=== PATIENT | male | born 1985 | race Caucasian/White ===

== ENCOUNTER 2017-02-01 21:26 | Emergency (ER) | payer MEDICAID ==
[~2017-02-01] VITALS: Ht 167.6 cm; Wt 69.5 kg
[2017-02-01 21:30] VITALS: Ht 167.6 cm; Wt 69.5 kg
[2017-02-01] MEDS ORDERED: KETOROLAC 30 MG INJ IV STA (23:30)
[2017-02-02] MEDS ORDERED: FENTAnyl 50 MCG/ML VIAL IV ONE (01:30)
--- NOTE | 2017-02-02 01:33 | RADRPT ---
PROCEDURE: CT scan facial bones CLINICAL INDICATION: Trauma, jaw dislocation, locked jaw. TECHNIQUE: A CT of the facial bones was performed without intravenous contrast. Coronal and sagitt al reformats were generated. CTDIvol: 29.58 mGy. DLP: 655.36 mGy-cm. One or more of the following dose reduction techniques were used: - Automated exposure control. - Adjustment of the mA and/or kV according to patient size. - Use of iterative reconstruction technique. COMPARISON: None available FINDINGS: The soft tissues of the face are unremarkable. There is anterior dislocation of both mandibular con dyles. No fractures identified.. The intraorbital structures are normal. The paranasal sinuses and nasal cavity are clear. There are small foci of air in the bilateral cavernous sinuses, probably a ir emboli related to an IV catheter. IMPRESSION: 1. Anterior dislocation of both mandibular condyles. 2. No facial fracture. RPTAT: HTAR .Giovanny Thakur MD, MD Date Time Electronically viewed and signed by .Giovanny Thakur MD, MD on 02/02/2017 01:33 .R/
[2017-02-02] MEDS: PROPOFOL 200 MG INJ IV ONE (03:11)
[2017-02-02] MEDS ORDERED: NAPR-688 PO (03:31)
--- NOTE | 2017-02-02 03:59 | ERD ---
ER Documentation Chief Complaint Date/Time DATE: 02/02/17 TIME: 03:51 Chief Complaint locked jaw since 20 minutes ago, unble to close mouth HPI This 31-year-old male presents emergency room with his jaw locked open. He said he bumped it from the side and it got stuck open. His mother is with him and this is happened to him 3 times now. He has not seen a specialist in follow -up yet. He has pain bilaterally and cannot close his mouth. ROS All systems reviewed and are negative except as per history of present illness. Medications Home Meds Active Scripts Naproxen* (Naproxen*) 500 Mg Tablet, 500 MG PO BID Y for PAIN, #14 TAB Prov:SALMA LY DO 02/02/17 Allergies Allergies: Coded Allergies: No Known Allergy (Unverified , 02/01/17) PMhx/Soc Hx Miscellaneous Medical Probl: Yes (JAW SX) Hx Alcohol Use: Yes (SOCIALLY) Hx Substance Use: No Hx Tobacco Use: No Smoking Status: Never smoker Physical Exam Vitals Vital Signs Date Time Temp Pulse Resp B/P Pulse Ox O2 Delivery O2 Flow Rate FiO2 02/02/17 04:00 98.3 62 20 111/71 100 Room Air 02/02/17 03:10 100 21 02/01/17 23:01 72 20 121/79 98 Room Air 02/01/17 21:30 98.3 87 20 137/82 98 Physical Exam Const: [] Moderate distress Head: Atraumatic Eyes: Normal Conjunctiva ENT: Mouth held open symmetrically. Unable to close. Normal appearance of internal mouth with no bleeding or signs of trauma. Neck: Full range of motion.. No Tenderness. Skin: No petechiae or rashes Back: No midline or flank tenderness Ext: No cyanosis, or edema, No other traumatic injury. Neur: Awake and alertOriented 3, no focal deficits Psych: Normal Mood and Affect Results 24 hrs Current Medications Medications (Trade) Dose Ordered Sig/Devin Route PRN Reason Start Time Stop Time Status Last Admin Dose Admin Ketorolac Tromethamine (Toradol) 30 mg ONCE STAT IV 02/01/17 23:30 02/01/17 23:32 DC 02/01/17 23:43 Fentanyl (Sublimaze) 50 mcg ONCE ONCE IV 02/02/17 01:30 02/02/17 01:31 DC 02/02/17 01:23 Propofol (Diprivan) 40 mg ONCE ONCE IV 02/02/17 02:30 02/02/17 02:31 DC Procedures/MDM Bilateral anterior jaw dislocation reduced in the emergency room. CT was obtained because patient said there was traumatic mechanism to this 1. 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 One attempt was made to reduce the jaw without sedation and this was unsuccessful. Propofol administration and draws easily reduced. I discharge the patient with naproxen. He had been given fentanyl and Toradol for pain. CT maxillofacial interpretation: Bilateral anterior jaw dislocation without fracture Maxillofacial XR: postreduction. Interval reduction of jaw dislocaiton with no fracture. Procedural sedation note:. Patient was placed on oxygen, cardiac monitoring with pulse ox, with entitled CO2 and respiratory at bedside. Propofol was used in stepwise 40 mg intervals. After 80 mg the patient still had significant pain and was unable to relax the muscles of his jaw. 40 more milligrams is the appropriate dose and the patient was moderately sedated. Procedure performed. Patient's vital signs remained stable throughout with no stable vital signs and good oxygenation. He did not require any interventions. He emerged quickly and was alert and oriented 3 within 15 minutes after procedure. Dislocation reduction note. Close reduced java flex developer mandible with thumbs on teeth. Downward and posterior pressure was applied. Gel was felt to move easily with no crunching or popping movements. Patient's mouth was easily able to close after this. Tolerated procedure well with no complications. Condition was improved afterward. He said his pain was not 2/10 Departure Diagnosis: Primary Impression: Dislocation of jaw, bilateral, sequela Condition: Stable Patient Instructions: Dislocations (Shoulder, Jaw, Elbow, Finger) Referrals: [facility] YOU HAVE RECEIVED A MEDICAL SCREENING EXAM AND THE RESULTS INDICATE THAT YOU DO NOT HAVE A CONDITION THAT REQUIRES URGENT TREATMENT IN THE EMERGENCY DEPARTMENT. FURTHER EVALUATION AND TREATMENT OF YOUR CONDITION CAN WAIT UNTIL YOU ARE SEEN IN YOUR DOCTORS OFFICE WITHIN THE NEXT 1-2 DAYS. IT IS YOUR RESPONSIBILITY TO MAKE AN APPOINTMENT FOR FOLOW-UP CARE. IF YOU HAVE A PRIMARY DOCTOR --you should call your primary doctor and schedule an appointment IF YOU DO NOT HAVE A PRIMARY DOCTOR YOU CAN CALL OUR PHYSICIAN REFERRAL HOTLINE AT IF YOU CAN NOT AFFORD TO SEE A PHYSICIAN YOU CAN CHOSE FROM THE FOLLOWING [facility] [address] [place] [address] [facility]. [place] [place] [facility] [address] [facility] [address] [facility] [address] [facility] [facility] [address] Additional Instructions: Llame al doctor MAANA y diana merna RAMILA PARA DENTRO DE 2-3 RIZVI.Dgale a la secretaria que nosotros le instruimos hacer esta ramila. Consigue un referral para un ENT or un OMFS (oral maxillofacial surgeron) Avise o llame si rodgers condicin se empeora antes de la ramila. Regresa aqui si peor o no mejor. SALMA LY DO Feb 02, 2017 03:59
[2017-02-02 04:00] VITALS: BP 111/71; PULSE 62; RESP 20; TEMP 98.3
--- NOTE | 2017-02-02 05:13 | RADRPT ---
PROCEDURE: TMJ series complete CLINICAL INDICATION: eval post reduction jaw TECHNIQUE: Four views of the bilateral TMJ including supine AP, right oblique and left oblique vie ws were performed. COMPARISON: CT of the face 02/02/2017 FINDINGS: There is interval reduction of the bilateral anterior TMJ dislocation. The temporomandibular joints are normal. No mandibular fracture seen. Unremarkable soft tissues. IMPRESSION: Successful reduction of bilateral TMJ dislocation. Physician Tia Date Time Electronically viewed and signed by Physician Tia on 02/02/2017 05:13 CS/
== END 2017-02-02 03:28 | disposition home or self-care (01) ==
LOC: E/R 21:26
DX: S03.03XA Dislocation of jaw, bilateral, initial encounter (principal); X50.9XXA Other and unspecified overexertion or strenuous movements or postures, initial encounter; Y92.9 Unspecified place or not applicable
CPT/HCPCS: 21480; 70330; 70486; 96374; 96375; J1885; J3010; Z7502; Z7610